=== PATIENT | male | born 1980 | race Caucasian/White ===

== ENCOUNTER 2019-12-03 09:09 | Emergency (ER) | payer OTHER ==
--- NOTE | 2019-12-03 10:24 | ULT ---
GALLBLADDER ULTRASOUND: INDICATION: Right upper quadrant pain. FINDINGS: Images of the gallbladder appear unremarkable. No evidence of gallstones. The gallbladder wall is n ormal. Common bile duct is normal caliber. The liver is echogenic suggesting fatty infiltration. Visualized pancreas is unremarkable. The right kidney is imaged and appears unremarkable. IMPRESSION: 1. Mildly echogenic liver suggesting hepatic steatosis. 2. Gallbladder ultrasound is otherwise unremarkable. POS: AGW
[2019-12-03 10:29] LABS: #Lymphocytes 2.1 thou/uL (1.20-3.40); #Monocytes 0.6 thou/uL (0.11-0.59); #Neutrophils 2.8 thou/uL (1.40-6.50); %Basophils 0.7 % (0.0-1.0); %Eosinophils 0.8 % (0.0-10.0); %Monocytes 10.5 % (0.0-10.0); %Neutrophils 50.9 % (42.0-75.0); Hemoglobin 16.9 g/dL (14.0-18.0); Mean Corpuscular HGB CONC 34.1 g/dL (32.0-36.0); Mean Corpuscular Hemoglobin 30.4 pg (27.0-31.0); Mean Corpuscular Volume 89.3 fL (78.0-98.0); Mean Platelet Volume 6.8 fL (7.4-10.4); Platelet Count 286 thou/uL (130-400); RBC Distribution Width 11.7 % (11.5-14.5); Red Blood Cell (RBC) Count 5.55 mill/uL (4.70-6.10); White Blood Cell (WBC) Count 5.6 thou/uL (4.8-10.8)
[2019-12-03 10:52] LABS: ALT (SGPT) 52 U/L (8-55); AST (SGOT) 26 U/L (5-34); Albumin 4.6 g/dL (3.5-5.0); Alkaline Phosphatase 83 U/L (40-110); Anion Gap 14 mmol/L (10-20); BUN (Urea Nitrogen) 13 mg/dL (8.9-20.6); Bilirubin, Total 0.8 mg/dL (0.2-1.2); Calc. Creatinine Clearance 0 mL/min (70-130); Calcium 9.5 mg/dL (7.8-10.44); Carbon Dioxide 27 mmol/L (22-29); Chloride 101 mmol/L (98-107); Estimated GFR-MDRD 73; Globulin 2.8 g/dL (2.4-3.5); Glucose 90 mg/dL (70-105); Lipase 20 U/L (8-78); Protein, Total 7.4 g/dL (6.0-8.3); Sodium 138 mmol/L (136-145)
[2019-12-03 11:03] LABS: Bilirubin Negative (Negative); Blood, Urine Negative (Negative); Clarity Clear (Clear); Glucose, Urine (Dipstick) Normal (Negative); Ketone, Urine Negative (Negative); Leukocyte Negative Leu/uL (Negative); Nitrite Negative (Negative); Protein, Urine (Dipstick) Negative (Neg-Trace); Specific Gravity, Urine 1.021 (1.002-1.036); Urobilinogen Normal mg/dL (Less than 2)
[2019-12-03] MEDS ORDERED: Lidocaine Viscous Sol 2% 15 ml UD Cup ONE (11:53)
[2019-12-03] MEDS ORDERED: Mag-Al 1200 mg/1200 mg/30 ML UDCUP ONE (11:53)
== END 2019-12-03 12:11 | disposition home or self-care (01) ==
LOC: ERS 09:09
DX: R10.11 Right upper quadrant pain (principal); I10 Essential (primary) hypertension; G89.29 Other chronic pain; Z79.899 Other long term (current) drug therapy
CPT/HCPCS: 76705; 80053; 81003; 83690; 85025

== ENCOUNTER 2019-12-21 07:53 | Outpatient (CLI) | payer OTHER ==
[2019-12-21 16:22] LABS: #Basophils 0.1 thou/uL (0.0-0.2); #Eosinphils 0.1 thou/uL (0.0-0.7); #Lymphocytes 3.1 thou/uL (1.20-3.40); #Monocytes 0.5 thou/uL (0.11-0.59); #Neutrophils 3.7 thou/uL (1.40-6.50); %Basophils 1.2 % (0.0-1.0); %Eosinophils 0.9 % (0.0-10.0); %Lymphocytes 41.8 % (21.0-51.0); %Monocytes 6.1 % (0.0-10.0); Hemoglobin 16.3 g/dL (14.0-18.0); Mean Corpuscular HGB CONC 34.3 g/dL (32.0-36.0); Mean Corpuscular Hemoglobin 30.7 pg (27.0-31.0); Mean Corpuscular Volume 89.6 fL (78.0-98.0); Mean Platelet Volume 6.9 fL (7.4-10.4); Platelet Count 293 thou/uL (130-400); RBC Distribution Width 11.4 % (11.5-14.5); Red Blood Cell (RBC) Count 5.29 mill/uL (4.70-6.10); White Blood Cell (WBC) Count 7.4 thou/uL (4.8-10.8)
[2019-12-21 17:00] LABS: ALT (SGPT) 42 U/L (8-55); AST (SGOT) 20 U/L (5-34); Albumin 4.6 g/dL (3.5-5.0); Alkaline Phosphatase 90 U/L (40-110); Anion Gap 14 mmol/L (10-20); BUN (Urea Nitrogen) 19 mg/dL (8.9-20.6); Bilirubin, Direct 0.2 mg/dL (0.1-0.3); Bilirubin, Total 0.5 mg/dL (0.2-1.2); Calc. Creatinine Clearance 0 mL/min (70-130); Calcium 9.5 mg/dL (7.8-10.44); Carbon Dioxide 26 mmol/L (22-29); Chloride 100 mmol/L (98-107); Estimated GFR-MDRD 63; Globulin 2.6 g/dL (2.4-3.5); Glucose 149 mg/dL (70-105); Potassium 4.3 mmol/L (3.5-5.1); Protein, Total 7.2 g/dL (6.0-8.3); Sodium 136 mmol/L (136-145)
[2019-12-22 11:06] LABS: SARS-CoV-2 MS2 Positive; SARS-CoV-2 N Gene Negative; SARS-CoV-2 S Gene Negative; SARS-CoV-2 by NAA Not Detected (NotDetected); SARS-CoV-2 orf1ab Negative
== END 2019-12-21 07:54 | disposition home or self-care (01) ==
LOC: LABBT 07:53
PROVIDERS: ATTEND Surgery
DX: Z01.818 Encounter for other preprocedural examination (principal); Z20.828 Contact with and (suspected) exposure to other viral communicable diseases; K80.50 Calculus of bile duct without cholangitis or cholecystitis without obstruction
CPT/HCPCS: 80053; 80076; 85025; 87635; 93005; 93010; U0003

== ENCOUNTER 2019-12-24 09:44 | Day surgery (SDC) | payer OTHER ==
[2019-12-23 12:12] VITALS: BMI 33.9
[2019-12-24] MEDS ORDERED: cefOXitin Sodium/Dextrose 2 GM/50 ML BAG ONE (10:26)
[2019-12-24] MEDS ORDERED: Ondansetron PF 4 MG/2 ML Vial ONE (12:03)
[2019-12-24] MEDS ORDERED: Dexamethasone 20 MG/5 ML VIAL ONE (12:03)
[2019-12-24] MEDS ORDERED: Rocuronium Bromide 10 MG/ML (10ML VIAL) ONE (12:03)
[2019-12-24] MEDS ORDERED: Lidocaine 1% PF 5 ML VIAL ONE (12:03)
[2019-12-24] MEDS ORDERED: Ketorolac Tromethamine 30 MG/ML VIAL ONE (12:03)
[2019-12-24] MEDS ORDERED: PROPOFOL 200 MG/20 ML VIAL ONE (12:03)
[2019-12-24] MEDS ORDERED: SUGAMMADEX SODIUM 200 MG/2 ML VIAL ONE (12:04)
[2019-12-24] MEDS ORDERED: HYDROmorphone 0.5 MG/0.5 ML SYRINGE ONE (12:04)
[2019-12-24] MEDS ORDERED: Fentanyl 100 MCG/2 ML VIAL ONE ×3 (12:04→13:52)
[2019-12-24] MEDS ORDERED: Bupivacaine/Epinephrine 0.25% 30 ML VIAL ONE (12:05)
[2019-12-24] MEDS ORDERED: Labetalol HCl 100 MG/20 ML VIAL ONE (13:31)
[2019-12-24] MEDS ORDERED: HYDROcodone/Acetaminophen 5/325 mg Tablet ONE (14:41)
--- NOTE | 2019-12-24 17:43 | OP ---
DATE OF PROCEDURE: 12/24/2019 PREOPERATIVE DIAGNOSIS: Biliary colic. PROCEDURE PERFORMED: Laparoscopic cholecystectomy. INDICATION FOR PROCEDURE: This is a 39-year-old male, who has been having episodic right upper quadrant pain, radiating to back, associated with nausea. Ultrasound negative. HIDA scan, the CCK reproduced his pain. He saw a GI doctor, they did an EGD, no evidence for the pain. Findings, distended gallbladder. Small caliber cystic duct. There were adhesions to the gallbladder, suggestive of previous inflammation. DESCRIPTION OF PROCEDURE: After informed consent was obtained, the patient was taken to the operating room, given general endotracheal anesthesia, placed in supine position. Abdomen was prepped and draped in usual fashion. Local anesthesia was infiltrated subcutaneously and deep. A subumbilical incision was performed, subcu divided sharply. The fascia was grasped, and 2 stay sutures of 0 Vicryl placed through each side of midline. Midline incised. Digital palpation revealed no local adhesions. A blunt 12 mm trocar inserted. Pneumoperitoneum was created to a pressure of 15 mmHg. A 0-degree laparoscope inserted under direct vision. Three 5-mm ports were placed subcostally. The gallbladder grasped, advanced superiorly, peritoneum lysed distally to reveal the cystic duct artery in critical view. The duct and artery were triply ligated with hemoclips and divided. The gallbladder removed from its fossa utilizing electrocautery, removed from the abdomen through the umbilical port. Hemostasis was assured. Trocars and retractors removed. The fascia closed with interrupted 0 Vicryl suture. The skin closed with interrupted 4-0 Rapide. Dermabond applied. The patient tolerated the procedure well, transferred to Recovery in good condition. Sponge and needle count verified correct x2. Job ID: [id number]
== END 2019-12-24 15:40 | disposition home or self-care (01) ==
LOC: SDC 09:44
PROVIDERS: ATTEND Surgery
PROC: 0FT44ZZ Resection of Gallbladder, Percutaneous Endoscopic Approach (ICD-10-PCS; principal; 2019-12-24)
DX: K80.64 Calculus of gallbladder and bile duct with chronic cholecystitis without obstruction (principal); I10 Essential (primary) hypertension; G89.29 Other chronic pain; Z79.899 Other long term (current) drug therapy
CPT/HCPCS: 88304; J0694; J1100; J1170; J1885; J2405; J2704; J3010

== ENCOUNTER 2020-10-28 19:02 | Emergency (ER) | payer OTHER ==
[2020-10-29 21:31] LABS: SARS-CoV-2 PCR by NAA DETECTED (NotDetected)
== END 2020-10-28 22:26 | disposition home or self-care (01) ==
LOC: ERS 19:02
DX: U07.1 COVID-19 (principal); I10 Essential (primary) hypertension; G47.30 Sleep apnea, unspecified; Z79.899 Other long term (current) drug therapy
CPT/HCPCS: 71045; 87081; 87430; U0003; U0005

== ENCOUNTER 2023-02-26 10:38 | Emergency (ER) | payer OTHER | END 2023-02-26 11:28 | disposition home or self-care (01) | LOC: ERS 10:38 | DX: S20.212A Contusion of left front wall of thorax, initial encounter (principal); I10 Essential (primary) hypertension; Z79.899 Other long term (current) drug therapy; W00.0XXA Fall on same level due to ice and snow, initial encounter ==

== ENCOUNTER 2023-12-01 11:33 | Emergency (ER) | payer OTHER ==
[2023-12-01] MEDS ORDERED: Ondansetron PF 4 MG/2 ML Vial ONE (11:48)
[2023-12-01] MEDS ORDERED: Aspirin Chewable 81 MG TAB ONE (11:48)
[2023-12-01 12:00] LABS: #Basophils 0.03 10x3/uL (0.0-0.2); %Basophils 0.4 % (0.0-1.0); %Lymphocytes 36.5 % (21.0-51.0); %Monocytes 10.2 % (0.0-10.0); %Neutrophils 51.5 % (42.0-75.0); Hematocrit 47.6 % (42.0-52.0); Hemoglobin 15.9 g/dL (14.0-18.0); Mean Corpuscular HGB CONC 33.4 g/dL (32.0-36.0); Mean Corpuscular Hemoglobin 29.8 pg (27.0-31.0); Mean Corpuscular Volume 89.1 fL (78.0-98.0); Mean Platelet Volume 8.8 fL (7.4-10.4); Platelet Count 262 10x3/uL (130-400); RBC Distribution Width 12.6 % (11.5-14.5); Red Blood Cell (RBC) Count 5.34 mill/uL (4.70-6.10)
[2023-12-01 12:18] LABS: ALT (SGPT) 40 U/L (8-55); AST (SGOT) 19 U/L (5-34); Albumin 4.5 g/dL (3.5-5.0); Alkaline Phosphatase 92 U/L (40-110); Anion Gap 12 mmol/L (10-20); BUN (Urea Nitrogen) 16 mg/dL (8.9-20.6); Bilirubin, Total 0.6 mg/dL (0.2-1.2); Calc. Creatinine Clearance 0 mL/min (70-130); Calcium 9.9 mg/dL (7.8-10.44); Carbon Dioxide 26 mmol/L (22-29); Chloride 103 mmol/L (98-107); Estimated GFR 94; Globulin 2.8 g/dL (2.4-3.5); Glucose 91 mg/dL (70-105); Lipase 23 U/L (8-78); Protein, Total 7.3 g/dL (6.0-8.3); Sodium 137 mmol/L (136-145)
[2023-12-01 12:22] LABS: Troponin I Less than 0.010 ng/mL (< 0.028)
[2023-12-01 15:20] LABS: Troponin I Less than 0.010 ng/mL (< 0.028)
[2023-12-01] MEDS ORDERED: Morphine 2 MG/ML VIAL ONE (15:43)
[2023-12-01] MEDS ORDERED: Lisinopril 10 MG TAB ONE (16:02)
[2023-12-01] MEDS ORDERED: Amlodipine 5 MG TAB ONE (16:05)
== END 2023-12-01 19:36 | disposition short-term general hospital (02) ==
LOC: ERS 11:33
DX: I10 Essential (primary) hypertension (principal); Z79.899 Other long term (current) drug therapy
CPT/HCPCS: 36415; 71046; 71275; 80053; 83690; 84484; 85025; 93005; 96374; 96375; J2272; J2405